=== PATIENT | female | born 1955 | race Caucasian/White ===

== ENCOUNTER 2019-04-01 05:27 | Emergency (ER) | payer BC, OTHER ==
[~2019-04-01] VITALS: Ht 177.8 cm; Wt 83.9 kg
[2019-04-01 05:27] VITALS: BP 145/72
[~2019-04-01 05:27] MED LIST: THYR60TA7 PO
[2019-04-01] MEDS ORDERED: ACETAMINOPHEN EXTRA STRENGTH 500 MG TAB PO ONE (05:30)
[2019-04-01 06:00] VITALS: BP 145/72
[2019-04-01] MEDS ORDERED: KETOROLAC 30 MG/ML VIAL IM ONE (06:40)
== END 2019-04-01 07:28 | disposition home or self-care (01) ==
LOC: MED 05:27
DX: S01.81XA Laceration without foreign body of other part of head, initial encounter (principal); E03.9 Hypothyroidism, unspecified; Z98.890 Other specified postprocedural states; Z79.899 Other long term (current) drug therapy; W18.39XA Other fall on same level, initial encounter; Y93.89 Activity, other specified; Y92.89 Other specified places as the place of occurrence of the external cause; Y99.8 Other external cause status
CPT/HCPCS: 12011; 70450; 72125; 96372; 99284; J1885